=== PATIENT | female | born 1975 | race Caucasian/White ===

== ENCOUNTER 2017-12-15 20:08 | Emergency (ER) | payer BC ==
--- NOTE | 2017-12-15 20:15 | ER Report ---
History and Physical Time Seen By MD: 20:15 HPI/ROS CHIEF COMPLAINT: Alcohol detox HISTORY OF PRESENT ILLNESS: 42-year-old female patient presents to emergency room with complaint of alcohol detox. Patient states that she has had problems with alcoholism for the past several years. She states that she has gone through rehabilitation twice, once in [place] and the second time was at the [facility]. She states that the longest time that she had been alcohol free was 4 months. The patient states that she normally drinks proximally a fifth a day. She states that today she is only had approximately 4 plaints. She states that she has had detox in the past, and typically after 2 days she started having shaking. Patient states that she starts drinking every morning. She states that at that time she does started being nauseated, having vomiting, having tremors. He states that her last drink was approximately an hour and half ago. REVIEW OF SYSTEMS: Respiratory: No cough, no dyspnea. Cardiovascular: No chest pain, no palpitations. Gastrointestinal: No vomiting, no abdominal pain. Musculoskeletal: No back pain. Home Meds No Active Prescriptions or Reported Meds Past Medical/Surgical History Patient has a past medical history of alcoholism. Patient denies any surgical history. Reviewed Nurses Notes: Yes Constitutional Vital Sign - Last 24 Hours 12/15/17 12/15/17 12/15/17 12/15/17 20:12 20:15 20:18 20:23 Temp 98.5 Pulse 92 88 84 Resp 18 18 21 B/P (MAP) 144/108 144/108 (120) Pulse Ox 93 94 88 O2 Delivery Room Air 12/15/17 12/15/17 12/15/17 12/15/17 20:28 20:33 20:38 20:43 Pulse 86 91 82 85 Resp 20 35 15 18 Pulse Ox 94 93 88 88 12/15/17 12/15/17 12/15/17 12/15/17 20:48 20:53 20:58 21:03 Pulse 81 85 87 86 Resp 11 13 18 11 Pulse Ox 89 92 89 91 12/15/17 12/15/17 12/15/17 12/15/17 21:16 21:18 21:23 21:27 Pulse 83 83 Resp 22 18 B/P (MAP) 126/82 (97) Pulse Ox 80 89 O2 Flow Rate 2.0 2/212/15/17 12/15/17 12/15/17 21:28 21:30 21:33 21:38 Pulse 79 75 82 Resp 19 17 13 B/P (MAP) 115/76 (89) Pulse Ox 89 94 91 Physical Exam General Appearance: The patient is alert, has no immediate need for airway protection and no current signs of toxicity. Patient smells of alcohol. ENT: Anicteric membranes are pearly-guerrero, auditory canals are patent, mucous membranes are moist. Respiratory: Chest is non tender, lungs are clear to auscultation. Cardiac: regular rate and rhythm Gastrointestinal: Abdomen is soft and non tender, no masses, bowel sounds normal. Musculoskeletal: Neck: Neck is supple and non tender. Extremities have full range of motion and are non tender. Skin: No rashes or lesions. DIFFERENTIAL DIAGNOSIS: After history and physical exam differential diagnosis was considered for depression, alcohol dependence, alcohol detox. Medical Decision Making Data Points Result Diagram: 12/15/17203812/15/172038 Laboratory Hematology Test 12/15/17 20:19 12/15/17 20:39 Urine Color Yellow Urine Clarity Clear Urine pH 7.0 pH (4.8-9.5) Urine Specific Irwin 1.006 Urine Protein Negative mg/dL (NEGATIVE) Urine Glucose (UA) Negative mg/dL (NEGATIVE) Urine Ketones Negative mg/dL (NEGATIVE) Urine Blood Negative (NEGATIVE) Urine Nitrite Negative (NEGATIVE) Urine Bilirubin Negative (NEGATIVE) Urine Urobilinogen Negative mg/dL (0.2-1.9) Urine Leukocyte Esterase Negative (NEGATIVE) Urine RBC None /HPF (0-2/HPF) Urine WBC 1 /HPF (0-5/HPF) Urine Squamous Epithelial Cells Many /LPF (</=FEW) Urine Bacteria Negative /HPF (NONE-FEW) Urine Mucus None /HPF (NONE-FEW) Urine HCG, Qualitative Negative (NEGATIVE) Urine Opiates Screen Negative Urine Barbiturates Screen Negative Ur Tricyclic Antidepressants Screen Negative Urine Phencyclidine Screen Negative Urine Amphetamines Screen Negative Urine Benzodiazepines Screen Negative Urine Cocaine Screen Negative Urine Cannabinoids Screen Negative Red Blood Count 4.43 M/uL (4.17-5.56) Mean Corpuscular Volume 101.5 fL (80.0-96.0) Mean Corpuscular Hemoglobin 35.2 pg (26.0-33.0) Mean Corpuscular Hemoglobin Concent 34.7 g/dL (32.0-36.0) Red Cell Distribution Width 12.7 % (11.5-14.5) Mean Platelet Volume 7.4 fL (7.2-11.1) Neutrophils (%) (Auto) 42.5 % (39.4-72.5) Lymphocytes (%) (Auto) 50.3 % (17.6-49.6) Monocytes (%) (Auto) 6.5 % (4.1-12.4) Eosinophils (%) (Auto) 0.3 % (0.4-6.7) Basophils (%) (Auto) 0.4 % (0.3-1.4) Nucleated RBC Relative Count (auto) 0.0 /100WBC Neutrophils # (Auto) 1.9 K/uL (2.0-7.4) Lymphocytes # (Auto) 2.2 K/uL (1.3-3.6) Monocytes # (Auto) 0.3 K/uL (0.3-1.0) Eosinophils # (Auto) 0.0 K/uL (0.0-0.5) Basophils # (Auto) 0.0 K/uL (0.0-0.1) Nucleated RBC Absolute Count (auto) 0.00 K/uL Sodium Level 145 mmol/L (137-145) Potassium Level 3.5 mmol/L (3.5-5.0) Chloride Level 104 mmol/L (98-107) Carbon Dioxide Level 21 mmol/L (22-31) Blood Urea Nitrogen 4 mg/dl (7-18) Creatinine 0.60 mg/dl (0.52-1.04) Glomerular Filtration Rate Calc > 60.0 Random Glucose 103 mg/dl (75-110) Calcium Level 8.7 mg/dl (8.4-10.2) Magnesium Level 2.1 mg/dl (1.7-2.2) Total Bilirubin 0.9 mg/dl (0.2-1.3) Aspartate Amino Transf (AST/SGOT) 203 U/L (0-35) Alanine Aminotransferase (ALT/SGPT) 118 U/L (0-56) Alkaline Phosphatase 79 U/L (0-126) Total Protein 8.2 gm/dl (6.3-8.2) Albumin 4.6 g/dl (3.5-5.0) Salicylates Level < 10 mg/L Salicylate Last Dose Date unk Acetaminophen Level < 10 ug/ml Serum Alcohol 418 mg/dl Chemistry Test 12/15/17 20:19 12/15/17 20:39 Urine Color Yellow Urine Clarity Clear Urine pH 7.0 pH (4.8-9.5) Urine Specific Irwin 1.006 Urine Protein Negative mg/dL (NEGATIVE) Urine Glucose (UA) Negative mg/dL (NEGATIVE) Urine Ketones Negative mg/dL (NEGATIVE) Urine Blood Negative (NEGATIVE) Urine Nitrite Negative (NEGATIVE) Urine Bilirubin Negative (NEGATIVE) Urine Urobilinogen Negative mg/dL (0.2-1.9) Urine Leukocyte Esterase Negative (NEGATIVE) Urine RBC None /HPF (0-2/HPF) Urine WBC 1 /HPF (0-5/HPF) Urine Squamous Epithelial Cells Many /LPF (</=FEW) Urine Bacteria Negative /HPF (NONE-FEW) Urine Mucus None /HPF (NONE-FEW) Urine HCG, Qualitative Negative (NEGATIVE) Urine Opiates Screen Negative Urine Barbiturates Screen Negative Ur Tricyclic Antidepressants Screen Negative Urine Phencyclidine Screen Negative Urine Amphetamines Screen Negative Urine Benzodiazepines Screen Negative Urine Cocaine Screen Negative Urine Cannabinoids Screen Negative White Blood Count 4.5 k/uL (4.5-11.0) Red Blood Count 4.43 M/uL (4.17-5.56) Hemoglobin 15.6 g/dL (12.0-16.0) Hematocrit 45.0 % (34.0-47.0) Mean Corpuscular Volume 101.5 fL (80.0-96.0) Mean Corpuscular Hemoglobin 35.2 pg (26.0-33.0) Mean Corpuscular Hemoglobin Concent 34.7 g/dL (32.0-36.0) Red Cell Distribution Width 12.7 % (11.5-14.5) Platelet Count 171 K/uL (150-450) Mean Platelet Volume 7.4 fL (7.2-11.1) Neutrophils (%) (Auto) 42.5 % (39.4-72.5) Lymphocytes (%) (Auto) 50.3 % (17.6-49.6) Monocytes (%) (Auto) 6.5 % (4.1-12.4) Eosinophils (%) (Auto) 0.3 % (0.4-6.7) Basophils (%) (Auto) 0.4 % (0.3-1.4) Nucleated RBC Relative Count (auto) 0.0 /100WBC Neutrophils # (Auto) 1.9 K/uL (2.0-7.4) Lymphocytes # (Auto) 2.2 K/uL (1.3-3.6) Monocytes # (Auto) 0.3 K/uL (0.3-1.0) Eosinophils # (Auto) 0.0 K/uL (0.0-0.5) Basophils # (Auto) 0.0 K/uL (0.0-0.1) Nucleated RBC Absolute Count (auto) 0.00 K/uL Glomerular Filtration Rate Calc > 60.0 Calcium Level 8.7 mg/dl (8.4-10.2) Magnesium Level 2.1 mg/dl (1.7-2.2) Total Bilirubin 0.9 mg/dl (0.2-1.3) Aspartate Amino Transf (AST/SGOT) 203 U/L (0-35) Alanine Aminotransferase (ALT/SGPT) 118 U/L (0-56) Alkaline Phosphatase 79 U/L (0-126) Total Protein 8.2 gm/dl (6.3-8.2) Albumin 4.6 g/dl (3.5-5.0) Salicylates Level < 10 mg/L Salicylate Last Dose Date unk Acetaminophen Level < 10 ug/ml Serum Alcohol 418 mg/dl Toxicology Test 12/15/17 20:19 12/15/17 20:39 Urine Opiates Screen Negative Urine Barbiturates Screen Negative Ur Tricyclic Antidepressants Screen Negative Urine Phencyclidine Screen Negative Urine Amphetamines Screen Negative Urine Benzodiazepines Screen Negative Urine Cocaine Screen Negative Urine Cannabinoids Screen Negative Salicylates Level < 10 mg/L Salicylate Last Dose Date unk Acetaminophen Level < 10 ug/ml Serum Alcohol 418 mg/dl Urinalysis Test 12/15/17 20:19 Urine Color Yellow Urine Clarity Clear Urine pH 7.0 pH (4.8-9.5) Urine Specific Irwin 1.006 Urine Protein Negative mg/dL (NEGATIVE) Urine Glucose (UA) Negative mg/dL (NEGATIVE) Urine Ketones Negative mg/dL (NEGATIVE) Urine Blood Negative (NEGATIVE) Urine Nitrite Negative (NEGATIVE) Urine Bilirubin Negative (NEGATIVE) Urine Urobilinogen Negative mg/dL (0.2-1.9) Urine Leukocyte Esterase Negative (NEGATIVE) Urine RBC None /HPF (0-2/HPF) Urine WBC 1 /HPF (0-5/HPF) Urine Squamous Epithelial Cells Many /LPF (</=FEW) Urine Bacteria Negative /HPF (NONE-FEW) Urine Mucus None /HPF (NONE-FEW) Urine HCG, Qualitative Negative (NEGATIVE) ED Course/Re-evaluation ED Course Patient was admitted to exam room, history and physical were obtained. Differential diagnoses were considered. On examination patient did smell of alcohol, patient did appear anxious and was tearful at times. Blood work for a behavioral health admission were done. The labs were unremarkable except patient did have an AST of 203, MCV of 101, blood alcohol for 18. I discussed the case with Nancy Jesus, psych mental health nurse practitioner, who agreed to accept the patient for admission. [facility] tech, did come down and talk with the patient. She did get her to sign in voluntarily. We'll go ahead and admit the patient. I discussed this with the patient and her and they verbalized understanding and agreement with plan. Decision to Disposition Date: Dec 15, 2017 Decision to Disposition Time: 21:42 Depart Departure Latest Vital Signs Vital Signs Date Time Temp Pulse Resp B/P (MAP) Pulse Ox O2 Delivery O2 Flow Rate FiO2 12/15/17 21:38 82 13 91 12/15/17 21:30 115/76 (89) 12/15/17 21:27 2.0 12/15/17 20:12 98.5 Room Air Impression: Primary Impression: Alcohol abuse Condition: Condition Unchanged Disposition: XFER TO [facility] New Scripts No Active Prescriptions or Reported Meds JANE GARCIA Dec 15, 2017 20:15
[2017-12-15 20:58] LABS: PLATELET COUNT, AUTOMATED 171 K/uL (150-450)
[2017-12-15 21:30] VITALS: BP 115/76
== END 2017-12-15 22:23 ==
LOC: ER 20:31
DX: F10.20 Alcohol dependence, uncomplicated (principal)
CPT/HCPCS: 80305; 80320; 80329; 81001; 81025; 82040; 82247; 82310; 82374; 82435; 82565; 82947; 83735; 84075; 84132; 84155; 84295; 84443; 84450; 84460; 84520; 85025; 99284; 99285

== ENCOUNTER 2017-12-15 21:55 | Inpatient (IN) | payer BC ==
[2017-12-15 10:40] VITALS: BP 128/78
[2017-12-15] MEDS ORDERED: MAG HYD/AL HYD/SIMETH 30ML UDC PO PRN (22:05)
[2017-12-16] MEDS: DIAZEPAM 10 MG TAB PO PRN ×11 (03:47→22:48)
[2017-12-16 03:55] VITALS: BP 118/88
[2017-12-16 07:50] VITALS: BP 122/86
[2017-12-16] MEDS: MULTIVITAMINS TAB PO SCH (08:38)
[2017-12-16] MEDS: FOLIC ACID 1 MG TAB PO SCH (08:38)
[2017-12-16] MEDS: THIAMINE HCL 100 MG TAB PO SCH (08:38)
[2017-12-16 14:40] VITALS: BP 131/101
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
[2017-12-16 19:34] VITALS: BP 142/92
[2017-12-17 01:23] VITALS: BP 142/88
[2017-12-17] MEDS: THIAMINE HCL 100 MG TAB PO SCH (08:48)
[2017-12-17] MEDS: FOLIC ACID 1 MG TAB PO SCH (08:48)
[2017-12-17] MEDS: MULTIVITAMINS TAB PO SCH (08:48)
[2017-12-17] MEDS: DIAZEPAM 10 MG TAB PO PRN (08:59)
--- NOTE | 2017-12-17 10:57 | BHS Progress Note ---
[facility] - Subjective Progress Notes Subjective "I still want to go home...this is depressing. I feel better than yesterday." Suicidal Ideation: None Homicidal Ideation: None [facility] - Objective Physical Exam Vital Signs Vital Signs 12/17/17 01:23 Temp 97.6 Pulse 92 Resp 14 B/P (MAP) 142/88 (106) Pulse Ox 97 O2 Delivery Room Air Muscle Strength and Tone: WNL Gait and Station: Other [facility] Medications Reviewed: Side Effects, Benefits of Medication, Risks Allergies Reviewed: Yes Mental Status Exam General Appearance: Casual, Good Eye Contact, Cooperative, Polite, Good Interaction, No Bizarre Mannerisms, No Tics Speech: Clear, Spontaneous, Normal Rate, Normal Rhythm, Normal Volume, Normal Tone Mood: Dysthmic/Depressed Affect: Calm, Sad Thought Process: Organized, Logical, Goal Directed, No Loose Associations, No Flight of Ideas Thought Content: No Suicidal Ideation, No Homicidal Ideation, No Delusions, No Auditory Halllucinations, No Visual Hallucinations, No Thought Broadcasting, No Ideas of Reference Sensorium: Clear Cognition: Alert & Oriented-Person, Alert & Oriented-Place, Alert & Oriented- Time, [id number] Memory: Immediate, Recent, Remote (grossly intact) Intelligence: Average Insight Judgment: Fair Result Diagram: 12/17/17 0515 [facility] Assessment and Plan [id number] Encounter Date: Dec 17, 2017 [id number] Encounter Time: 10:40 [facility] Plan: Admit to Unit, Necessary Precautions, Individual/Group Therapy, Admin /Titrate Meds, Educate Patient Problems: EMI DYKES NP Dec 17, 2017 10:57
--- NOTE | 2017-12-18 07:56 | DISCHARGE SUMMARY ---
Patient is leaving AGAINST MEDICAL ADVICE. FINAL DIAGNOSES PER DSM-V Alcohol use disorder, severe. Alcohol intoxication. REASON FOR ADMISSION This is a 42-year-old single female admitted to the unit requesting alcohol detoxification. She denied any suicidal thoughts, hallucinations or homicidal thoughts. PHYSICAL EXAMINATION Please see emergency room note for review of systems. Vitals signs on the day of discharge include: Temperature 97.6, pulse 92, blood pressure 142/88, pulse oximetry 97% on room air. LABORATORY DATA She was admitted with a blood alcohol level of 418. We did repeat Chem panel on the morning of December 17, 2017, and her total bilirubin is 2.6, AST 119 and high, ALT 95 and high. On the day of admission, her MCV was 101.5, MCH 35.2 and high, lymphocytes 50.3 and high, eosinophils 0.3 and low, neutrophils 1.9 and low. On the day of admission, her AST was 203 and high, and ALT was 118 and high. MENTAL STATUS EXAMINATION GENERAL APPEARANCE, BEHAVIOR AND ATTITUDE: Patient appears well kempt. She is dressed in hospital scrubs per policy. She is cooperative with interviewers, and she makes good eye contact. SPEECH: Normal rate, rhythm and volume. MOOD: Described as I am getting depressed being here. AFFECT: Somewhat sad, tearful at times. THOUGHT PROCESSES: Overall logical and goal-directed. No loose associations or flight of ideas. THOUGHT CONTENT: She denies any suicidal ideation, denies homicidal ideation, denies any auditory, visual or other hallucinations. No delusions are elicited. SENSORIUM: Clear. COGNITION: She is alert and oriented to person, place, time and situation. MEMORY: Immediate, recent and remote estimated grossly intact. INTELLIGENCE: Average, based on interview. INSIGHT AND JUDGMENT: Fair. She acknowledges that she has an alcohol disorder , however, she is requesting to leave AGAINST MEDICAL ADVICE to complete her alcohol withdrawal. TREATMENT Patient was monitored per the [facility] protocol during her stay, and she did receive treatment. She did receive education regarding alcohol withdrawal and the benefits of treatment of such, as well as recommended treatment for follow up to maintain sobriety. HOSPITAL COURSE She was pleasant and cooperative throughout her stay. Alcohol withdrawal was moderate. She did keep in contact with her significant other throughout the stay. She did receive Valium per the [facility] protocol. CONDITION OF PATIENT ON DISCHARGE Again, this is an AGAINST MEDICAL ADVICE discharge because patient was advised it is recommended that she stay for the 72 hours to monitor alcohol withdrawal, however, she declines to do so. DISPOSITION Patient was discharged to home in the care of her significant other AGAINST MEDICAL ADVICE. It is advised that she follow up with her primary care provider on Monday morning. She is recommended to follow up with substance abuse treatment including AA, advised to abstain from all alcohol and benzodiazepines, and the safety risks of using such were discussed. The 24- hour crisis line number was provided should symptoms problems return. She was also advised to call 911 or present to her local hospital emergency room should symptoms increase. The risks, benefits and alternatives of the AMA discharge were discussed with client, and informed consent was given for her to proceed with the AMA discharge. KAMERON
== END 2017-12-17 12:30 | disposition home or self-care (01) | DRG 897 ==
LOC: BHS 21:55
PROVIDERS: ADMIT Registered Nurse Psychiatric/Mental Health, Adult; ATTEND Registered Nurse Psychiatric/Mental Health, Adult
DX: F10.230 Alcohol dependence with withdrawal, uncomplicated (principal); Z53.29 Procedure and treatment not carried out because of patient's decision for other reasons; Y90.8 Blood alcohol level of 240 mg/100 ml or more; Z62.810 Personal history of physical and sexual abuse in childhood; Z81.1 Family history of alcohol abuse and dependence; Z81.8 Family history of other mental and behavioral disorders
CPT/HCPCS: 36415; 82040; 82247; 82310; 82374; 82435; 82565; 82947; 84075; 84132; 84155; 84295; 84450; 84460; 84520